=== PATIENT | male | born 1980 | race Caucasian/White ===

== ENCOUNTER 2023-06-06 23:10 | Emergency (ER) | payer MEDICAID ==
[~2023-06-06] VITALS: Ht 167.6 cm; Wt 79.5 kg
[2023-06-06 23:31] VITALS: TEMP 98.6; O2SAT 96
[2023-06-06] MEDS ORDERED: MORPHINE SULFATE 4 MG/ML CPJ (NOT FOR IM USE) IV STA (23:54)
[2023-06-06] MEDS ORDERED: ONDANSETRON HCL 4MG/2ML INJ IV STA (23:54)
[2023-06-07] MEDS ORDERED: SODIUM CHLORIDE 0.9% 1,000 ML IV ONE
[2023-06-07] MEDS: LIDOCAINE HCL/EPINEPHRINE 1%-EPI 1:100,000 20 ML VIAL INFIL ONE
[2023-06-07] MEDS: TETANUS, DIPHTHERIA, PERTUSSIS VAC/PF 0.5ML (>10YR OLD) IM ONE
[2023-06-07 00:17] LABS: BASOPHILS % 0.4 % (0.0-2.0); EOSINOPHILS % 0.6 % (0.0-5.0); HEMATOCRIT. 41.8 % (42.0-52.0); HEMOGLOBIN. 13.9 g/dL (14.0-18.0); LYMPHOCYTES % 16.9 % (20.0-50.0); MEAN CORPUSCULAR HEMOGLOBIN 32.6 pg (28.0-32.0); MEAN CORPUSCULAR HGB CONC 33.2 g/dL (31.0-37.0); MEAN CORPUSCULAR VOLUME 98.1 fL (80.0-94.0); MEAN PLATELET VOLUME 8.8 fl (7.4-10.4); MONOCYTES % 5.4 % (2.0-8.0); NEUTROPHILS % 76.7 % (40.0-76.0); PLATELET 261 x1000/uL (130-400); RED BLOOD CELL COUNT 4.26 mill/uL (4.7-6.1); RED CELL DISTRIBUTION WIDTH 16.1 % (11.6-14.6); WHITE BLOOD COUNT 11.7 x1000/uL (4.5-11.0)
[2023-06-07 00:20] LABS: DIFFERENTIAL COMMENT 1
[2023-06-07 00:28] LABS: PARTIAL THROMBOPLASTIN TIME 23.4 sec (23.4-31.0); PROTHROMBIN TIME 10.9 sec (9.6-11.0)
[2023-06-07 00:58] LABS: ALANINE AMINOTRANSFERASE 34 IU/L (10-49); ALBUMIN 5.3 g/dL (3.2-4.8); ASPARTATE AMINOTRANSFERASE 35 IU/L (<34); BILIRUBIN TOTAL 0.2 mg/dL (0.1-1.0); CARBON DIOXIDE 22 mEq/L (21-32); CHLORIDE 107 mEq/L (98-107); GLUCOSE 122 mg/dL (70-105); POTASSIUM 3.7 mEq/L (3.5-5.1); PROTEIN TOTAL 8.8 g/dL (6.0-8.3); SODIUM 140 mEq/L (136-145); TROPONIN I HIGH SENSITIVITY 18 ng/L (3.0-53); UREA NITROGEN BLOOD 11 mg/dL (9-23)
[2023-06-07] MEDS ORDERED: BACITRACIN ZINC OINT UDPKT TOP ONE (01:15)
[2023-06-07] MEDS ORDERED: LIDOCAINE HCL/PF 1% 10 MG/ML 5ML VIAL INFIL ONE (01:15)
[2023-06-07 01:33] VITALS: BP 130/87; PULSE 95; RESP 16
[2023-06-07] MEDS: AMPICILLIN SOD/SULBACTAM NA 3 G in SODIUM CHLORIDE 0.9% 100 ML IV STA (02:29)
[2023-06-07] MEDS ORDERED: IOHEXOL-300 100 ML BOTTLE ONE (05:03)
== END 2023-06-07 03:02 | disposition short-term general hospital (02) ==
LOC: ER 23:10
DX: S02.85XA Fracture of orbit, unspecified, initial encounter for closed fracture (principal); R06.02 Shortness of breath; S27.331A Laceration of lung, unilateral, initial encounter; S10.93XA Contusion of unspecified part of neck, initial encounter; S00.31XA Abrasion of nose, initial encounter; J93.9 Pneumothorax, unspecified; I31.9 Disease of pericardium, unspecified; M54.2 Cervicalgia; Y04.0XXA Assault by unarmed brawl or fight, initial encounter; Y93.89 Activity, other specified; Y92.89 Other specified places as the place of occurrence of the external cause; Y99.8 Other external cause status
CPT/HCPCS: 36415 ×2; 71045; 93005; 12011; 99291; 80053; 82310; 83880; 83690; 85025; 85610; 85730; 86850; 86900; 86901; 84484; 70450; 70491; 70480; 71260; 74177; 90715; 90471; 96365; Q9967; J0295; J3490; J7050; J7030; Z7610 ×2